=== PATIENT | male | born 2000 | race Caucasian/White ===

== ENCOUNTER → 2019-11-07 | Day surgery (SDC) | payer BC ==
[~2019-11-07] MED LIST: FENTANYL CITRATE/PF 100MCG/2 ML INJ ONE; LANSOPRAZOLE15 MG; METHYLPHENIDATE5 MG; METOCLOPRAMIDE HCL 10 MG/2ML VIAL ONE; MIDAZOLAM HCL 5MG/ML 2ML VIAL ONE; PANTOPRAZOLE 40 MG 10ML VIAL ONE; PROPOFOL IV EMULSION 10 MG/ML 50 ML VIAL ONE
[2019-11-07 08:20] VITALS: BP 103/64
--- NOTE | 2019-11-07 08:59 | Operative Report ---
DATE OF PROCEDURE: 11/07/2019 SURGEON: Cody De Dios MD PROCEDURE: EGD with biopsies. INDICATIONS FOR EGD: Acid reflux, globus. MEDICATIONS: The patient was done under, MAC please see anesthesiologist's note. PROCEDURE IN DETAIL: With the patient in left lateral decubitus position, a flexible fiberoptic Olympus gastroscope was introduced into the esophagus under direct visualization without any difficulty. There were some patchy erythema noted in distal esophagus. The scope was then advanced with ease into the stomach and mucosa overlying the body and the antrum revealed some patchy erythema and [id number] edema and biopsies were obtained and sent to stain for H. pylori. There was some excessive nodularity noted in the upper body and biopsies were obtained. Pylorus was of normal contour and shape, it was intubated with ease and the scope was advanced all the way to the second portion of the duodenum. Biopsies were obtained from the proximal second portion and duodenal bulb to rule out sprue. The scope was then withdrawn back into the stomach and retroflexed, mucosa overlying the fundus and cardia were grossly unremarkable. The scope was then straightened out, it was subsequently withdrawn. The patient tolerated the procedure well. IMPRESSION: 1. Distal esophagitis. 2. Gastritis, biopsied, biopsies sent to stain for H. pylori. 3. Excessive nodularity, upper body, biopsied. 4. Rule out sprue. PLAN: 1. Follow up histology. 2. Initiate Protonix 40 mg one p.o. q.a.m. a.c. Cody De Dios MD [facility] [place] /[id number]
== END | disposition home or self-care (01) ==
LOC: OR 05:50
PROVIDERS: ATTEND Internal Medicine Gastroenterology
DX: K20.9 Esophagitis, unspecified (principal); K29.50 Unspecified chronic gastritis without bleeding; K31.89 Other diseases of stomach and duodenum; K21.9 Gastro-esophageal reflux disease without esophagitis; F90.9 Attention-deficit hyperactivity disorder, unspecified type; Z68.23 Body mass index [BMI] 23.0-23.9, adult
CPT/HCPCS: 43239; C9113; J2250; J2704; J2765; J3010